=== PATIENT | female | born 1945 | race Caucasian/White ===

== ENCOUNTER 2019-03-13 10:26 | Outpatient (CLI) | payer MEDICARE ==
--- NOTE | 2019-03-13 11:43 | SJPRAD ---
2 VIEWS CHEST: Date: 03/13/19 COMPARISON: 07/16/09. HISTORY: Cardiomegaly. FINDINGS: 2 views of the chest show a cardiomediastinal silhouette which is upper limits of normal in size. Thi s is stable compared to the prior exam. There is no evidence of consolidation, mass, or pleural effus ion. IMPRESSION: No evidence of acute cardiopulmonary disease. POS: [facility]
== END 2019-03-13 10:27 | disposition home or self-care (01) ==
LOC: MWLC RAD 10:26
PROVIDERS: ATTEND Family Medicine
DX: I51.7 Cardiomegaly (principal)